=== PATIENT | female | born 1975 | race Hispanic/Latino ===

== ENCOUNTER → 2023-02-17 | Outpatient (CLI) | payer OTHER, MEDICARE | END | disposition home or self-care (01) | LOC: RAH 10:44 | PROVIDERS: ATTEND Internal Medicine Gastroenterology | DX: R14.0 Abdominal distension (gaseous) (principal); R10.12 Left upper quadrant pain; R68.81 Early satiety | CPT/HCPCS: 78264; A9541 ==

== ENCOUNTER → 2024-05-08 | Outpatient (CLI) | payer OTHER, MEDICARE | END | disposition home or self-care (01) | LOC: RAH 10:51 | PROVIDERS: ATTEND Student in an Organized Health Care Education/Training Program | DX: M17.11 Unilateral primary osteoarthritis, right knee (principal); M25.861 Other specified joint disorders, right knee; M23.91 Unspecified internal derangement of right knee | CPT/HCPCS: 73721 ==